=== PATIENT | male | born 1975 | race Caucasian/White ===

== ENCOUNTER 2016-05-16 22:28 | Emergency (ER) | payer OTHER ==
--- NOTE | ~2016-05-16 | CR219 ---
[facility] A Service of [facility] RADIOLOGY TEXT RESULTS PATIENT: CORETTA ARGUETA LOCATION: SED : 77 UNIT #: [id number] AGE: [address]: Josiah Sullivan MD SEX: M ORDER DR: [id number] [place] [id number] E MR#: [id number] Acc #: [id number] NAME: CORETTA ARGUETA : 1975 SEX: M STUDY DATE/TIME: 05/16/2016 22:45 UNIT: SED ROOM: STUDY DESCRIPTION: CR Sacrum and Coccyx Min 2 Vie Attending Physician: Josiah Sullivan M.D. Ordering Physician: Josiah Sullivan M.D. Primary Care Physician: Primary Care Physician No MEDICAL IMAGING REPORT This report is preliminary unless electronic signature is present. EXAM Sacrum and coccyx series, 05/16/2016 INDICATION Lower back and sacral pain intermittent over the past year. PROCEDURE 3 views sacrum and coccyx. COMPARISON None. FINDINGS Sacroiliac joints are symmetric. No acute fracture. IMPRESSION No acute findings. Dictated by... Edwar Rosa M.D. THIS IS AN ELECTRONICALLY VERIFIED REPORT Edwar Rosa M.D. at 05/17/2016 10:24 PM EED/libra TD: 05/17/2016 02:20 JOB #: [id number] MEDICAL IMAGING REPORT [facility] A Service of [facility] RADIOLOGY TEXT RESULTS PATIENT: CORETTA ARGUETA LOCATION: SED : 77 UNIT #: [id number] AGE: [address]: Josiah Sullivan MD SEX: M ORDER DR: Page 1 of 1
--- NOTE | ~2016-05-16 | CR181 ---
[facility] A Service [facility] RADIOLOGY TEXT RESULTS PATIENT: CORETTA ARGUETA LOCATION: SED : [birth year] UNIT #: [id number] AGE: [address]: Josiah Sullivan MD SEX: M ORDER DR: [id number] [place] [id number] [id number] E MR#: [id number] Acc #: [id number] NAME: CORETTA ARGUETA : 1975 SEX: M STUDY DATE/TIME: 05/16/2016 22:45 UNIT: SED ROOM: STUDY DESCRIPTION: CR Lumbar Spine 2 or 3 Views Attending Physician: Josiah Sullivan M.D. Ordering Physician: Josiah Sullivan M.D. Primary Care Physician: Primary Care Physician No MEDICAL IMAGING REPORT This report is preliminary unless electronic signature is present. EXAM Lumbar spine series INDICATIONS Lower back pain intermittently over the past year. PROCEDURE 3 views lumbar spine. COMPARISON 11/04/2015 FINDINGS Lumbar bodies have normal height. There is approximately 4 mm retrolisthesis of L4 on L5 and 5 mm retrolisthesis L5 on S1. Mild degenerative disc disease at L5-S1 with mild lower lumbar spine facet arthrosis. Redemonstration of the left renal calculi, largest measuring up to 10 mm. IMPRESSION 1. Mild degenerative change at L4-L5 and L5-S1. No acute findings. 2. Stable calculi in the left kidney. Dictated by... Edwar Rosa M.D. THIS IS AN ELECTRONICALLY VERIFIED REPORT Edwar Rosa M.D. at 05/17/2016 10:24 PM EED/psc TD: 05/17/2016 02:17 [facility] A Service [facility] RADIOLOGY TEXT RESULTS PATIENT: CORETTA ARGUETA LOCATION: SED : [birth year] UNIT #: [id number] AGE: [address]: Josiah Sullivan MD SEX: M ORDER DR: ALBARO #: [id number] MEDICAL IMAGING REPORT Page 1 of 1
[~2016-05-16 22:28] MED LIST: ALBUTEROL17 GM INH; AMOXICILLIN PO; AZITHROMYCIN250 MG PO; BENZONATATE PO; CIPRO PO; E-MYCIN250 MG PO; FLOMAX0.4 M1 PO; HYDROCODON-ACE1 EAC7 PO; HYDROCODONE-APA1 T30 PO; LORTAB 7.5-5001 TAB PO; MEDROL PO; NO MEDICATIONS; PERCOCET 5/321 UDTAB PO; PHENERGAN25 M1 PO; PHENERGAN25 MG PO; PYRIDIUM PO; RONDEC DROPS30 ML PO; VIBRAMYCIN100 M1 PO; VICODIN 5/1 TAB 5/50 PO; VOLTAREN75 MG PO; ZITHROMAX PO
[2016-07-08] MEDS ORDERED: NO MEDICATIONS (00:16)
== END 2016-05-17 00:18 | disposition home or self-care (01) ==
LOC: SED 22:28
DX: M51.17 Intervertebral disc disorders with radiculopathy, lumbosacral region (principal); F31.9 Bipolar disorder, unspecified; F17.210 Nicotine dependence, cigarettes, uncomplicated
CPT/HCPCS: 72100; 72220; 99284